=== PATIENT | male | born 1950 | race Caucasian/White ===

== ENCOUNTER 2017-11-14 13:40 | Emergency (ER) | payer MEDICARE, OTHER ==
[~2017-11-14] VITALS: Ht 182.9 cm; Wt 111.1 kg
[~2017-11-14 13:40] MED LIST: ASPI325 PO; ATOR40TA; Coreg PO; DIAZ5; EZET10 PO; GABA300 PO; LISI20 PO; LORA1 PO; METF500; NIFE60ER PO; ONDA8; PROM25 PO; PROVASTIN; SERT100; TAMS.4ER
[2017-11-14] MEDS ORDERED: ASPI81CH PO (13:48)
== END 2017-11-14 15:55 | disposition home or self-care (01) ==
LOC: ER 13:40
DX: S81.811A Laceration without foreign body, right lower leg, initial encounter (principal); W45.8XXA Other foreign body or object entering through skin, initial encounter; Z79.899 Other long term (current) drug therapy; Z79.82 Long term (current) use of aspirin; Z79.84 Long term (current) use of oral hypoglycemic drugs; E11.9 Type 2 diabetes mellitus without complications; I25.2 Old myocardial infarction
CPT/HCPCS: 12004; 73610; 99283

== ENCOUNTER → 2017-11-22 | Outpatient (CLI) | payer MEDICARE, OTHER ==
[~2017-11-22] MED LIST changes: +ASPI81CH PO
== END | disposition home or self-care (01) ==
LOC: LAB SHORT 14:19 → LAB EV 14:19
DX: S81.801A Unspecified open wound, right lower leg, initial encounter (principal)
CPT/HCPCS: 87070; 87077; 87186; 87205

== ENCOUNTER → 2017-12-17 | Outpatient (CLI) | payer MEDICARE, OTHER ==
[~2017-12-17] MED LIST changes: -ATOR40TA; +ATOR40TA PO; -DIAZ5; +DIAZ5 PO; -METF500; +METF500C PO; -ONDA8; +ONDA8 PO; -SERT100; +SERT100 PO; -TAMS.4ER; +TAMS.4ER PO
== END ==
LOC: LAB SHORT 16:47 → LAB 16:47
DX: L08.9 Local infection of the skin and subcutaneous tissue, unspecified (principal); C44.222 Squamous cell carcinoma of skin of right ear and external auricular canal; D48.5 Neoplasm of uncertain behavior of skin
CPT/HCPCS: 87070; 87147; 87205

== ENCOUNTER 2019-08-18 12:14 | Day surgery (SDC) | payer MEDICARE, OTHER ==
[~2019-08-18] VITALS: Ht 182.9 cm; Wt 119.6 kg
--- NOTE | 2019-08-18 13:29 | NUR ---
08/18/19 1329 Milena Hopper 5ML NORMAL SALINE USED TO ELEVATE TRANSVERSE COLON POLYP
== END 2019-08-18 14:05 | disposition home or self-care (01) ==
LOC: ORSCSDS 12:14
PROVIDERS: Internal Medicine Gastroenterology
PROC: 0DBK8ZX Excision of Ascending Colon, Via Natural or Artificial Opening Endoscopic, Diagnostic (ICD-10-PCS; principal; 2019-08-18 13:15)
PROC: 0DBL8ZX Excision of Transverse Colon, Via Natural or Artificial Opening Endoscopic, Diagnostic (ICD-10-PCS; principal; 2019-08-18 13:15)
PROC: 0DBN8ZX Excision of Sigmoid Colon, Via Natural or Artificial Opening Endoscopic, Diagnostic (ICD-10-PCS; principal; 2019-08-18 13:15)
DX: Z12.11 Encounter for screening for malignant neoplasm of colon (principal); D12.2 Benign neoplasm of ascending colon; D12.3 Benign neoplasm of transverse colon; K63.5 Polyp of colon; G47.33 Obstructive sleep apnea (adult) (pediatric); E11.9 Type 2 diabetes mellitus without complications; I10 Essential (primary) hypertension; E78.5 Hyperlipidemia, unspecified; I25.10 Atherosclerotic heart disease of native coronary artery without angina pectoris; F41.8 Other specified anxiety disorders; F43.10 Post-traumatic stress disorder, unspecified; F10.21 Alcohol dependence, in remission; Z87.891 Personal history of nicotine dependence; Z79.82 Long term (current) use of aspirin; Z79.84 Long term (current) use of oral hypoglycemic drugs; Z79.899 Other long term (current) drug therapy
CPT/HCPCS: 82947; 88305; J2405; J2704; J7120

== ENCOUNTER 2021-06-30 07:35 | Day surgery (SDC) | payer MEDICARE, OTHER ==
[~2021-06-30] VITALS: Ht 182.9 cm; Wt 131.0 kg
[~2021-06-30 07:35] MED LIST changes: +Crestor20 MG PO; +TRAZ100 PO
--- NOTE | 2021-06-30 12:40 | NUR ---
DR MCLAIN DISCUSSED PLAN OF CARE W PT, DAUGHTER ON THE WAY TO DRIVE PT HOME, PT WILL DC BY SHORTLY
== END 2021-06-30 11:00 | disposition home or self-care (01) ==
LOC: MHTC 07:35
DX: I25.110 Atherosclerotic heart disease of native coronary artery with unstable angina pectoris (principal); E78.5 Hyperlipidemia, unspecified; J44.9 Chronic obstructive pulmonary disease, unspecified; G47.33 Obstructive sleep apnea (adult) (pediatric); I11.0 Hypertensive heart disease with heart failure; I50.9 Heart failure, unspecified; E11.9 Type 2 diabetes mellitus without complications; K21.9 Gastro-esophageal reflux disease without esophagitis; Z98.1 Arthrodesis status; Z95.5 Presence of coronary angioplasty implant and graft; Z96.643 Presence of artificial hip joint, bilateral; Z87.891 Personal history of nicotine dependence
CPT/HCPCS: 76937; 93454; 99152; 99153; C1769; C1894; J1644; J2250; J3010; J7030; J7050; Q9967

== ENCOUNTER 2022-03-08 10:24 | Emergency (ER) | payer MEDICARE, OTHER ==
[~2022-03-08] VITALS: Ht 182.9 cm; Wt 122.5 kg
[2022-03-08 11:16] LABS: BASOPHILS ABSOLUTE AUTO 0.02 K/mm3 (0.00-0.23); BASOPHILS PERCENT AUTO 0 % (0-2); EOSINOPHILS PERCENT AUTO 4 % (0-6); Hematocrit 39.5 % (37.0-53.0); Hemoglobin 13.3 g/dL (13.5-17.5); IMMATURE GRAN ABSOLUTE AUTO 0.02 K/mm3 (0.00-0.10); IMMATURE GRAN PERCENT AUTO 0 % (0-1); LYMPHOCYTES ABSOLUTE AUTO 1.48 K/mm3 (0.84-5.20); LYMPHOCYTES PERCENT AUTO 20 % (21-46); MONOCYTES ABSOLUTE AUTO 0.55 K/mm3 (0.16-1.47); MONOCYTES PERCENT AUTO 8 % (4-13); Mean Corpuscular HGB 32.2 pg (26.0-34.0); Mean Corpuscular HGB Conc 33.7 g/dL (31.5-36.5); Mean Corpuscular Volume 96 fL (80-100); Mean Platelet Volume 9.3 fL (9.1-12.4); NEUTROPHILS ABSOLUTE AUTO 4.95 K/mm3 (1.96-9.15); NEUTROPHILS PERCENT AUTO 68 % (41-73); Platelet Count 224 K/mm3 (150-400); RDW Coefficient Variation 13.7 % (11.7-14.2); Red Blood Cell Count 4.13 M/mm3 (4.30-5.90); White Blood Cell Count 7.32 K/mm3 (4.00-11.30)
[2022-03-08 11:35] LABS: Albumin, Blood 3.5 g/dL (3.4-5.0); Albumin/Globulin Ratio 1.1 (0.8-1.8); Bilirubin, Total 0.3 mg/dL (0.1-1.0); Calcium, Blood 9.3 mg/dL (8.5-10.1); Creatinine, Blood 0.94 mg/dL (0.60-1.20); Globulin, Blood 3.3 g/dL (2.2-4.0); Potassium, Blood 4.6 mmol/L (3.5-5.5); Total Protein, Blood 6.8 g/dL (6.4-8.2)
== END 2022-03-08 12:24 | disposition home or self-care (01) ==
LOC: ER 10:24
PROVIDERS: Physician Assistant
DX: R07.89 Other chest pain (principal); I25.2 Old myocardial infarction; E11.9 Type 2 diabetes mellitus without complications; Z79.899 Other long term (current) drug therapy; Z79.82 Long term (current) use of aspirin; Z79.84 Long term (current) use of oral hypoglycemic drugs
CPT/HCPCS: 36415; 71045; 80053; 84484; 85025; 93005; 93010; 99285-25

== ENCOUNTER 2025-03-24 06:17 | Day surgery (SDC) | payer MEDICARE, OTHER ==
[2025-03-24] VITALS (12 sets, daily range): BP systolic 118–140; BP diastolic 65–84
[~2025-03-24] VITALS: Ht 182.9 cm; Wt 100.0 kg
[2025-03-24] MEDS ORDERED: Isosorbide Mono30 MG PO (06:37)
[2025-03-24] MEDS ORDERED: XARELTO20 MG PO (06:38)
[2025-03-24] MEDS ORDERED: Crestor40 MG PO (06:38)
[2025-03-24] MEDS ORDERED: Lisinopril2.5 MG PO (06:38)
[2025-03-24] MEDS ORDERED: NS 1,000 ML IV ONE (06:45)
--- NOTE | 2025-03-24 07:35 | NUR ---
ASSUMED CARE FROM ANESTHESIA. PT AWAKE AND VERBALIZING WELL. SR 60-70 BPM POST CARDIOVERSION.
--- NOTE | 2025-03-24 08:44 | NUR ---
PT VERBALIZED UNDERSTANDING OF WRITTEN AND VERBAL D/C INST. IV REMOVED. SR 62 BPM ON D/C. ZIO MONITOR PLACED BEFORE D/C FOR BRADYCARDIA AND PAUSES. PT TAKEN OUT OF THE DEPARTMENT VIA W/C.
[2025-03-24] MEDS ORDERED: Propofol 10mg/ml 20 ml Vial (Procedural) IV ONE (13:31)
== END 2025-03-24 23:00 | disposition home or self-care (01) ==
LOC: MHTC 06:17
DX: I48.91 Unspecified atrial fibrillation (principal); I25.10 Atherosclerotic heart disease of native coronary artery without angina pectoris; I10 Essential (primary) hypertension; E78.5 Hyperlipidemia, unspecified; K21.9 Gastro-esophageal reflux disease without esophagitis; J44.9 Chronic obstructive pulmonary disease, unspecified; E11.9 Type 2 diabetes mellitus without complications; Z87.891 Personal history of nicotine dependence; Z88.8 Allergy status to other drugs, medicaments and biological substances; Z79.84 Long term (current) use of oral hypoglycemic drugs; Z79.899 Other long term (current) drug therapy
CPT/HCPCS: 92960; 93005; 93010; 93246; J2704; J7030